=== PATIENT | female | born 1995 | race Two or more races ===

== ENCOUNTER 2018-10-17 09:04 | Observation (INO) | payer MEDICAID, OTHER ==
[~2018-10-17] VITALS: Ht 157.5 cm; Wt 70.3 kg
[2018-10-17] MEDS ORDERED: PREN-96 PO (10:51)
== END 2018-10-17 10:47 | disposition home or self-care (01) | DRG 566 ==
LOC: EDBD 09:04 → LDRP 09:04
PROVIDERS: ADMIT Specialist; ATTEND Specialist
DX: O48.0 Post-term pregnancy (principal); Z3A.40 40 weeks gestation of pregnancy
CPT/HCPCS: 59025; 76818; 81002; G0378